=== PATIENT | female | born 1970 | race Two or more races ===

== ENCOUNTER 2020-04-08 05:58 | Day surgery (SDC) | payer OTHER | END 2020-04-08 10:25 | disposition home or self-care (01) | LOC: AMB-ENDOS 05:58 → ADM 13:30 | PROVIDERS: ATTEND Surgery | DX: K62.89 Other specified diseases of anus and rectum (principal); K64.0 First degree hemorrhoids; Z12.11 Encounter for screening for malignant neoplasm of colon ==